=== PATIENT | male | born 1960 | race Caucasian/White ===

== ENCOUNTER 2016-12-16 10:02 | Emergency (ER) | payer BC ==
[~2016-12-16] VITALS: Ht 177.8 cm; Wt 77.2 kg
[2016-12-16] MEDS ORDERED: LISI-167 PO (10:34)
[2016-12-16] MEDS ORDERED: ASPIRIN 81 MG TABLET CHEW ONE (11:23)
[2016-12-16] MEDS ORDERED: LISINOPRIL 20 MG TABLET ONE (11:23)
[2016-12-16] MEDS ORDERED: LISINOPRIL 10 MG TABLET PO ONE (11:30)
[2016-12-16] MEDS ORDERED: ASPIRIN 81 MG TABLET CHEW PO ONE (11:30)
[2016-12-16 11:55] LABS: BLOOD UREA NITROGEN 13 mg/dL (7-18)
[2016-12-16 12:05] LABS: IS PT STATUS REG ER OR PRE ER? YES
[2016-12-16 13:23] VITALS: BP 160/108
== END 2016-12-16 14:01 | disposition home or self-care (01) ==
LOC: ED 10:59
DX: I10 Essential (primary) hypertension (principal)
CPT/HCPCS: 36415; 71010; 80048; 82040; 84484; 85025; 93005; 99285